=== PATIENT | male | born 2005 | race Caucasian/White ===

== ENCOUNTER → 2025-07-11 18:55 | Outpatient (CLI) | payer OTHER, SELFPAY ==
--- NOTE | 2025-07-11 19:00 | DI.RAD.S_ITS ---
PROCEDURE: XR KNEE RT 3V INDICATIONS: Ground level fall, L and I TECHNIQUE: 3 views of the knee were acquired. COMPARISON: None. FINDINGS: Bones: No fractures or dislocations. No suspicious bony lesions. Soft tissues: No joint effusion. No suspicious soft tissue calcifications. IMPRESSION: No acute bony abnormality or significant effusion. Dictated by: Max Kirby M.D. on 07/12/2025 at 10:19 Approved by: Max Kirby M.D. on 07/12/2025 at 10:20
--- NOTE | 2025-07-11 19:00 | DI.RAD.S_ITS ---
PROCEDURE: XR ELBOW LT MIN 3V INDICATIONS: Ground level fall, L and I TECHNIQUE: 3 views of the elbow were acquired. COMPARISON: None. FINDINGS: Bones: No fractures or dislocations. No suspicious bony lesions. Soft tissues: No elbow joint effusion. No suspicious soft tissue calcifications. IMPRESSION: No acute bony abnormality or significant joint effusion. Dictated by: Max Kirby M.D. on 07/12/2025 at 10:20 Approved by: Max Kirby M.D. on 07/12/2025 at 10:20
== END ==
LOC: RAD 18:59
PROVIDERS: Referring Provider Nurse Practitioner Family; Visit Provider Nurse Practitioner Family
DX: S50.02XA Contusion of left elbow, initial encounter (principal); M25.561 Pain in right knee; W18.30XA Fall on same level, unspecified, initial encounter
CPT/HCPCS: 73080; 73562